=== PATIENT | female | born 1980 | race Caucasian/White ===

== ENCOUNTER 2017-08-07 17:42 | Outpatient (CLI) | payer MEDICAID, OTHER | END 2017-08-07 21:17 | disposition home or self-care (01) | LOC: OBT 17:42 → L-D 17:44 → OBT 21:17 | DX: O24.419 Gestational diabetes mellitus in pregnancy, unspecified control (principal); O09.513 Supervision of elderly primigravida, third trimester; Z3A.35 35 weeks gestation of pregnancy | CPT/HCPCS: 76818 ==

== ENCOUNTER 2017-08-07 21:24 | Emergency (ER) | payer MEDICAID | END 2017-08-08 02:15 | disposition home or self-care (01) | LOC: FTE 08-08 02:15 | DX: O9A.213 Injury, poisoning and certain other consequences of external causes complicating pregnancy, third trimester (principal); S89.91XA Unspecified injury of right lower leg, initial encounter; O24.113 Pre-existing type 2 diabetes mellitus, in pregnancy, third trimester; W01.0XXA Fall on same level from slipping, tripping and stumbling without subsequent striking against object, initial encounter; Y92.9 Unspecified place or not applicable; Z3A.35 35 weeks gestation of pregnancy | CPT/HCPCS: 73562; 99283-25 ==

== ENCOUNTER 2017-09-10 12:20 | Inpatient (IN) | payer MEDICAID ==
[2017-09-10] MEDS ORDERED: OXYTOCIN 30 UNITS/LR 500 ML IV ×2 (14:00)
[2017-09-10] MEDS ORDERED: CARBOPROST 250 MCG INJ IM (14:00)
[2017-09-10] MEDS ORDERED: METHYLERGONOVINE 0.2 MG INJ IM (14:00)
[2017-09-10] MEDS ORDERED: BUTORPHANOL 2 MG INJ IV (14:00)
[2017-09-10] MEDS ORDERED: MISOPROSTOL 200 MCG TAB PR (14:00)
[2017-09-10] MEDS ORDERED: LIDOCAINE 1% (MPF) 30 ML INJ INJ (14:00)
[2017-09-10] MEDS: LACTATED RINGER'S 1,000 ML IV ×3 (14:13→23:11)
[2017-09-10 15:42] LABS: ADD MAN DIFF? NO
[2017-09-10 15:49] LABS: WHITE BLOOD COUNT 11.4 10^3/ul (4.8-10.8)
[2017-09-10 15:49] LABS: BASOPHILS % 0.3 % (0.0-2.0); EOSINOPHILS # 0.1 10^3/ul (0.0-0.5); EOSINOPHILS % 0.6 % (0.0-7.0); HEMATOCRIT 37.4 % (37.0-47.0); HEMOGLOBIN 12.4 g/dl (12.0-16.0); LYMPHOCYTES # 1.7 10^3/ul (0.8-2.9); LYMPHOCYTES % 15.2 % (15.0-51.0); MEAN CORPUSCULAR HGB CONC 33.2 g/dl (32.0-37.0); MEAN CORPUSCULAR VOLUME 81.5 fl (82.0-101.0); MEAN PLATELET VOLUME 11.5 fl (7.4-10.4); MONOCYTE # 0.8 10^3/ul (0.3-0.9); NEUTROPHIL # 8.6 10^3/ul (1.6-7.5); NEUTROPHILS % 75.9 % (39.0-77.0); PLATELET COUNT 305 10^3/UL (140-415); RED BLOOD COUNT 4.59 10^6/ul (4.20-5.40); RED CELL DISTRIBUTION WIDTH 14.7 % (11.5-14.5)
[2017-09-10] MEDS: DINOPROSTONE 10 MG VAG SUPP VAG (15:55)
[2017-09-10 16:05] LABS: GLUCOSE 75 mg/dl (70-220)
[2017-09-10 16:20] LABS: INR 0.93; PROTIME 12.5 Sec (11.9-14.9)
[2017-09-10 16:21] LABS: PARTIAL THROMBOPLASTIN TIME 26.1 Sec (25.0-35.0)
[2017-09-10] MEDS: DEXTROSE 5%-LR 1,000 ML IV (17:07)
[2017-09-10 22:07] LABS: RAPID PLASMA REAGIN NONREACTIVE (NR)
[2017-09-10] MEDS ORDERED: FENTAnyl 2MCG/ML-ROPIV 0.2% 100 ML (23:10)
[2017-09-10] MEDS ORDERED: NALOXONE (0.4 MG/ML) INJ IV (23:30)
[2017-09-10] MEDS ORDERED: DIPHENHYDRAMINE 50 MG INJ IV (23:30)
[2017-09-10] MEDS ORDERED: EPHEDrine SULFATE 50 MG/5 ML SYG IV (23:30)
[2017-09-10] MEDS ORDERED: ONDANSETRON 4 MG INJ IV (23:30)
[2017-09-11] MEDS: FENTAnyl 2MCG/ML-ROPIV 0.2% 100 ML BAG EPI ×3 (00:05→21:13)
[2017-09-11] MEDS: DEXTROSE 5%-LR 1,000 ML IV ×3 (00:20→12:20)
[2017-09-11] MEDS: LACTATED RINGER'S 1,000 ML IV ×3 (01:24→21:38)
[2017-09-11] MEDS: OXYTOCIN 30 UNITS/LR 500 ML IV (04:21)
[2017-09-12] MEDS: DEXTROSE 5%-LR 1,000 ML IV (00:20)
[2017-09-12] MEDS: CEFAZOLIN 2 GM/50 ML (PMX) 50 ML IV (02:19)
[2017-09-12] MEDS: LACTATED RINGER'S 1,000 ML IV ×4 (02:20→20:33)
[2017-09-12] MEDS ORDERED: FENTAnyl 50 MCG/ML VIAL (02:37)
[2017-09-12] MEDS ORDERED: ONDANSETRON 4 MG INJ (02:43)
[2017-09-12] MEDS ORDERED: NA BICARBONATE 8.4% 50 ML SYG (02:43)
[2017-09-12] MEDS ORDERED: LIDOCAINE 1.5%/EPI MPF (SDV) 30 ML VIAL (02:43)
[2017-09-12] MEDS ORDERED: DEXAMETHASONE 4 MG/ML 1 ML INJ (02:43)
[2017-09-12] MEDS ORDERED: morphine SULFATE/PF (10 MG/10 ML) INJ (03:11)
[2017-09-12] MEDS ORDERED: DIPHENHYDRAMINE 50 MG INJ IV (04:00)
[2017-09-12] MEDS ORDERED: NALOXONE (0.4 MG/ML) INJ IV (04:00)
[2017-09-12] MEDS ORDERED: ONDANSETRON 4 MG INJ IV (04:00)
[2017-09-12] MEDS ORDERED: ZOLPIDEM 5 MG TAB PO (04:00)
[2017-09-12] MEDS ORDERED: HYDROmorphONE 0.5 MG/0.5 ML SYG IV ×2 (04:00)
[2017-09-12] MEDS ORDERED: NALBUPHINE HCL (10 MG/1 ML) INJ IV (04:00)
[2017-09-12] MEDS: OXYTOCIN 30 UNITS/LR 500 ML IV ×2 (05:33→13:39)
[2017-09-12] MEDS ORDERED: METHYLERGONOVINE 0.2 MG INJ IM (06:00)
[2017-09-12] MEDS ORDERED: CARBOPROST 250 MCG INJ IM (06:00)
[2017-09-12] MEDS ORDERED: OXYTOCIN 30 UNITS/LR 500 ML IV (06:00)
[2017-09-12] MEDS ORDERED: MISOPROSTOL 200 MCG TAB PR (06:00)
[2017-09-12] MEDS: SENNA/DOCUSATE NA (8.6MG/50MG) TAB PO ×2 (09:00→21:00)
[2017-09-12] MEDS: KETOROLAC 30 MG INJ IV (20:31)
[2017-09-13] MEDS ORDERED: OXYCODONE/ACETAMINOPHEN (5/325) TAB PO ×2 (04:00→08:30)
[2017-09-13] MEDS: OXYCODONE/ACETAMINOPHEN (5/325) TAB PO (05:09)
[2017-09-13] MEDS: LACTATED RINGER'S 1,000 ML IV (05:57)
[2017-09-13] MEDS: IBUPROFEN 800 MG TAB PO ×3 (06:28→21:15)
[2017-09-13 07:45] LABS: ADD MAN DIFF? NO
[2017-09-13 07:55] LABS: WHITE BLOOD COUNT 14.1 10^3/ul (4.8-10.8)
[2017-09-13 07:55] LABS: BASOPHIL # 0.1 10^3/ul (0.0-0.1); BASOPHILS % 0.4 % (0.0-2.0); EOSINOPHILS # 0.2 10^3/ul (0.0-0.5); EOSINOPHILS % 1.1 % (0.0-7.0); HEMOGLOBIN 9.3 g/dl (12.0-16.0); LYMPHOCYTES # 1.4 10^3/ul (0.8-2.9); LYMPHOCYTES % 10.1 % (15.0-51.0); MEAN CORPUSCULAR HEMOGLOBIN 27.4 pg (29.0-33.0); MEAN CORPUSCULAR HGB CONC 33.2 g/dl (32.0-37.0); MEAN CORPUSCULAR VOLUME 82.6 fl (82.0-101.0); MEAN PLATELET VOLUME 10.5 fl (7.4-10.4); MONOCYTE # 0.9 10^3/ul (0.3-0.9); MONOCYTES % 6.4 % (0.0-11.0); NEUTROPHIL # 11.4 10^3/ul (1.6-7.5); PLATELET COUNT 219 10^3/UL (140-415); RED BLOOD COUNT 3.39 10^6/ul (4.20-5.40); RED CELL DISTRIBUTION WIDTH 15.1 % (11.5-14.5)
[2017-09-13] MEDS ORDERED: ACETAMINOPHEN 500 MG TAB PO (08:30)
[2017-09-13] MEDS ORDERED: KETOROLAC 30 MG INJ IV (08:30)
[2017-09-13] MEDS ORDERED: ONDANSETRON 4 MG INJ IV (08:30)
[2017-09-13] MEDS: LANOLIN 7 GM TUBE TOP (10:19)
[2017-09-13] MEDS: SENNA/DOCUSATE NA (8.6MG/50MG) TAB PO ×2 (10:19→21:15)
[2017-09-13] MEDS: INFLUENZA VIRUS VACCINE 0.5 ML SYG IM* (13:54)
[2017-09-14] MEDS: OXYCODONE/ACETAMINOPHEN (5/325) TAB PO ×2 (00:35→17:32)
[2017-09-14] MEDS: IBUPROFEN 800 MG TAB PO ×2 (06:30→13:15)
[2017-09-14] MEDS: SENNA/DOCUSATE NA (8.6MG/50MG) TAB PO (10:38)
[2017-09-14] MEDS: DIPHTH/TET/ACEL PERTUSS (ADULT) 0.5 ML VIAL IM* (10:39)
[2017-09-15] MEDS ORDERED: DIPHTH/TET/ACEL PERTUSS (ADULT) 0.5 ML VIAL IM* (09:00)
== END 2017-09-14 18:20 | disposition home or self-care (01) | DRG 766 ==
LOC: L-D 12:20 → PP1 09-12 08:42
PROVIDERS: Obstetrics & Gynecology
PROC: 3E0P7VZ Introduction of Hormone into Female Reproductive, Via Natural or Artificial Opening (ICD-10-PCS; 2017-09-10)
PROC: 10D00Z1 Extraction of Products of Conception, Low, Open Approach (ICD-10-PCS; principal; 2017-09-12)
DX: O48.0 Post-term pregnancy (principal); O62.0 Primary inadequate contractions; Z37.0 Single live birth; Z3A.41 41 weeks gestation of pregnancy
CPT/HCPCS: 62319; 76815; 82947; 82962; 85025; 85610; 85730; 86592; 86900; 86901; 88307; 90715; 94760; 99464